=== PATIENT | female | born 1985 | race African-American/Black ===

== ENCOUNTER 2021-09-11 17:28 | Emergency (ER) | payer OTHER, SELFPAY ==
--- NOTE | ~2021-09-11 | CT_ITS ---
EXAMINATION: CT brain wo con EXAM DATE: 09/11/2021 20:23 INDICATION: left arm and leg numbness, paresthesias since Friday. TECHNIQUE: Spiral CT of the head was performed without contrast. Axial, coronal and sagittal images were reviewed. The dose-length product (DLP) for this examination was 605.33 mGy-cm. The exposure w as tailored according to patient size, and iterative reconstruction (ASIR) was used as additional dos e reduction technique. There is no prior study for comparison. FINDINGS: There is no acute intraparenchymal hemorrhage. No evidence of intraparenchymal brain mass lesion. No evidence of acute infarction. There is no mass effect or midline shift. The ventricles are normal in size. There are no extra-axial collections. There are no acute calvarial fractures. T he orbits are unremarkable. Soft tissue is unremarkable. The visualized sinuses and mastoid air laurie ls are well aerated. IMPRESSION: 1. No acute intracranial findings. Reviewed, dictated and finalized at location G. [employer]
[2021-09-11 17:46] VITALS: BP 109/93; PULSE 100; RESP 16; TEMP 36.3; O2SAT 100
--- NOTE | 2021-09-11 19:58 | ED.GENADULT ---
HPI - General Adult General Chief complaint: Extremity Problem,Nontraumatic Stated complaint: L side numb Time Seen by Provider: 09/11/21 19:45 History of Present Illness HPI narrative: 35-year-old female presented emerge department for evaluation of left arm and leg numbness. Patient states since she has had left arm and left leg numbness. Patient states initially this started with a left-sided neck pain. Patient did initially present to an outside hospital showing no significant abnormality. At that time patient was diagnosed with a cervical radiculopathy. Patient had follow-up with her primary care physician and they also agreed it was most likely a cervical radiculopathy but told her to present to the emergency department for brain imaging. Patient was initially requesting an MRI. Patient denies any prior history of strokes. Patient denies any coagulopathy. Patient denies any chest pain or shortness of breath. Patient states she does have some associated left-sided numbness but denies any associated weakness. Related Data Allergies Allergy/AdvReac Type Severity Reaction Status Date / Time No Known Allergies Verified 09/11/21 17:52 Review of Systems Review of Systems: CONSTITUTIONAL: Denies fever, chills, or sweats. EYES: Denies visual changes, redness, or discharge. ENT: Denies rhinorrhea, congestion, sore throat, or otalgia. CARDIOVASCULAR: Denies chest pain, palpitations, or edema. RESPIRATORY: Denies cough or dyspnea. GASTROINTESTINAL: Denies abdominal pain, nausea, vomiting, or diarrhea. GENITOURINARY: Denies dysuria or hematuria. SKIN: Denies rash or itching. MUSCULOSKELETAL: Denies back pain, joint pain, or myalgia. NEUROLOGIC: Denies headache or weakness. reports numbness of left 1st and second finger, subjective numbness of left foot. PSYCHIATRIC: Denies anxiety or depression. Exam Narrative: APPEARANCE: Well appearing, no pain in distress, well-nourished. Head normocephalic atraumtaic. EYES: PERRLA/EOMI, conjunctivae very clear. NOSE: Normal no drainage NECK: Supple. No adenopathy, no masses, no tenderness to palpation. RESPIRATORY: Airway patent, repsirations nonlabored. Clear to auscultation bilaterally, no rales, rhonchi, wheezing. CARDIOVASCULAR: Regular rate and rhythm without murmurs rubs or gallops. ABDOMINAL: Soft, nontender, nondistended, no hepatosplenomegally MUSCULOSKELETAl: Moves all extremities. Strenght/ROM intact, No edema, No calf tenderness. NEURO: Alert. Cranial nerves II through XII intact. Good gait. Good coordination, normal forward and backward tandem gait. patient denies numbness on exam but states it just feels strange . SKIN: Warm, dry. Normal Color PSYCHIATRIC: Normal affect/mood, normal interaction with parents. Course Course Emergency Course: Patient was updated on the results of the physical exam. CT of head will be ordered. Low concern for intravascular abnormality. Symptoms are most likely consistent with cervical radiculopathy. Patient was updated on the results of the imaging. All questions and concerns were addressed. Patient was comfortable with the plan for discharge and close follow-up. Vital Signs Vital signs: Vital Signs Temperature 97.3 F L 09/11/21 17:46 Pulse Rate 100 09/11/21 17:46 Respiratory Rate 16 09/11/21 17:46 Blood Pressure 109/93 H 09/11/21 17:46 Pulse Oximetry 100 09/11/21 17:46 Temperature 97.3 F L 09/11/21 17:46 Pulse Rate 100 09/11/21 17:46 Respiratory Rate 16 09/11/21 17:46 Blood Pressure 109/93 H 09/11/21 17:46 Pulse Oximetry 100 09/11/21 17:46 Medical Decision Making Differential Diagnosis Differential Diagnosis: CVA, cervical radiculopathy Medical Records Medical records reviewed: Yes I reviewed the external patient's medical records. Medical records narrative: Patient had the printouts of the imaging reports and labs from the outside hospital. Vital Signs Vital Signs: Vital Signs Temperature 97.3
[2021-09-11 20:51] VITALS: PULSE 69; RESP 14; TEMP 36.7; O2SAT 100
== END 2021-09-11 20:51 | disposition home or self-care (01) ==
PROVIDERS: Emergency Provider Emergency Medicine; PCP Internal Medicine
DX: M54.12 Radiculopathy, cervical region (principal)
CPT/HCPCS: 70450; 99284

== ENCOUNTER 2023-09-16 08:53 | Outpatient (CLI) | payer OTHER, SELFPAY ==
[2023-09-19 08:42] LABS: Hepatitis C Viral RNA PCR <15 IU/mL
== END 2023-09-16 08:54 | disposition home or self-care (01) ==
PROVIDERS: PCP Internal Medicine; Visit Provider Nurse Practitioner Family
DX: R76.8 Other specified abnormal immunological findings in serum (principal)
CPT/HCPCS: 36415; 87522; 87902

== ENCOUNTER 2024-06-21 13:23 | Outpatient (CLI) | payer OTHER, SELFPAY ==
--- NOTE | ~2024-06-21 | US_ITS ---
EXAMINATION: US pelvic limited DATE: 06/21/2024 13:54 INDICATION: Abnormal uterine and vaginal bleeding. TECHNIQUE: Multiple transabdominal sonographic images of the pelvis were obtained. COMPARISON: None. FINDINGS: The uterus measures 10.0 x 4.0 x 5.3 cm. There is physiologic free fluid in the pelvis. The endometri al complex measures 5 mm in thickness. The right ovary measures 2.0 x 5.1 x 3.6 cm. The left ovary me asures 2.3 x 3.5 x 2.8 cm. There is normal vascular flow in the ovaries. IMPRESSION: 1. Normal pelvis. Reviewed, dictated and finalized at location A. IMPRESSION: 1. Normal pelvis.
== END 2024-06-21 13:24 | disposition home or self-care (01) ==
LOC: ANHIMG 13:24
PROVIDERS: PCP Internal Medicine; Visit Provider Obstetrics & Gynecology
DX: N93.9 Abnormal uterine and vaginal bleeding, unspecified (principal)
CPT/HCPCS: 76857